=== PATIENT | male | born 1985 ===

== ENCOUNTER 2016-07-23 17:23 | Emergency (ER) | payer SELFPAY ==
[2016-07-23 17:28] VITALS: BP 131/75; PULSE 60; RESP 16; TEMP 98.7; O2SAT 100
--- NOTE | 2016-07-23 17:46 | ED PDOC ---
HPI: Back Time Seen by Provider: 07/23/16 17:44 Chief Complaint (Nursing): Back Pain Chief Complaint (Provider): back pain History Per: Patient (31 y/o male h/o herniated disc noted on MRI 2014 here with lower back pain that occurred after lifting heavy box. Notes sharp pain in back with certain movements. Denies any urinary/rectal incontinence. Has tried motrin/tylenol at home with minimal relief of symptoms. ) Past Medical History Reviewed: Historical Data, Nursing Documentation, Vital Signs Vital Signs: Last Vital Signs Temp 98.7 F 07/23/16 17:26 Pulse 60 07/23/16 17:26 Resp 16 07/23/16 17:26 BP 131/75 07/23/16 17:26 Pulse Ox 100 07/23/16 17:26 - Medical History PMH: Back Problems - Family History Family History: States: No Known Family Hx - Home Medications Home Medications: Ambulatory Orders Medication Instructions Recorded Prednisone 50 mg PO DAILY #6 tab 10/25/13 Acetaminophen with Codeine 1 tab PO Q8 #10 tab 12/16/13 [Tylenol with Codeine No. 3 300 mg-30 mg] Naproxen [Naprosyn] 500 mg PO Q12H #20 tab 12/16/13 Cyclobenzaprine HCl [Flexeril] 10 mg PO Q8 #20 tab 07/20/14 Naproxen [Naprosyn] 500 mg PO BID #20 tab 07/20/14 oxyCODONE/Acetaminophen [Percocet 1 tab PO Q4H PRN #20 tab 07/20/14 5/325 mg Tab] Meloxicam [Mobic] 15 mg PO DAILY PRN #30 tab 07/28/14 Methocarbamol [Robaxin-750] 750 mg PO TID PRN #30 tab 07/28/14 Naproxen [Naprosyn Tab] 375 mg PO Q8 PRN #21 tab 07/23/16 diaZEpam [Valium] 5 mg PO Q6 PRN #8 tab 07/23/16 - Allergies Allergies/Adverse Reactions: Allergies Allergy/AdvReac Type Severity Reaction Status Date / Time No Known Allergies Allergy Verified 07/20/14 14:59 Review of Systems ROS Statement: Except As Marked, All Systems Reviewed And Found Negative Physical Exam - Reviewed Nursing Documentation Reviewed: Yes Vital Signs Reviewed: Yes - Physical Exam Appears: Positive for: Well, Non-toxic, No Acute Distress Head Exam: Positive for: ATRAUMATIC, NORMAL INSPECTION, NORMOCEPHALIC Skin: Positive for: Normal Color, Warm, DRY Eye Exam: Positive for: EOMI, Normal appearance, PERRL ENT: Positive for: Normal ENT Inspection Neck: Positive for: Normal, Painless ROM Cardiovascular/Chest: Positive for: Regular Rate, Rhythm Respiratory: Positive for: CNT, Normal Breath Sounds Gastrointestinal/Abdominal: Positive for: Normal Exam, Bowel Sounds, Soft Back: Positive for: Normal Inspection, Other (left lower paralumbar tenderness) Extremity: Positive for: Normal ROM Neurologic/Psych: Positive for: Alert, Oriented - ECG O2 Sat by Pulse Oximetry: 100 - Progress ED Course And Treament: Toradol 60 mg IM x 1 dose Disposition - Clinical Impression Clinical Impression: Low back pain - Patient ED Disposition Is Patient to be Admitted: No - Disposition Referrals: [facility] [Outside] Disposition: Routine/Home Disposition Time: 17:47 Condition: FAIR Prescriptions: diaZEpam [Valium] 5 mg PO Q6 PRN #8 tab PRN Reason: Muscle Spasm Naproxen [Naprosyn Tab] 375 mg PO Q8 PRN #21 tab PRN Reason: Pain, Moderate (4-7) Instructions: Acute Low Back Pain (GEN) Forms: [facility] ED School/Work Excuse Print Language: FIJIAN
== END 2016-07-23 18:14 | disposition home or self-care (01) ==
LOC: H.ER 17:23
DX: M54.5 Low back pain (principal)
CPT/HCPCS: 96372; 99281; J1885

== ENCOUNTER 2016-11-20 13:51 | Emergency (ER) | payer OTHER ==
[2016-11-20 14:05] VITALS: BP 123/67; PULSE 60; RESP 16; TEMP 98.2; O2SAT 99
[2016-11-20] MEDS ORDERED: Oxycodone/Acetaminophen 5/325 mg Tab PO STA (14:17)
[2016-11-20] MEDS ORDERED: Oxycodone/Acetaminophen 5/325 mg Tab ONE (14:27)
--- NOTE | 2016-11-20 14:31 | ED PDOC ---
HPI: Back Time Seen by Provider: 11/20/16 14:11 Chief Complaint (Nursing): Back Pain Chief Complaint (Provider): Back Pain History Per: Patient History/Exam Limitations: no limitations Onset/Duration Of Symptoms: Days (x2) Current Symptoms Are (Timing): Still Present Additional Complaint(s): Juan Lozada is a 31 year old male with a history of back pain that presents to the ED with a chief complaint of back pain and left-sided pelvic pain that began two days ago after the patient lifted something heavy at work and was unable to stand up properly afterwards. Patient reports a history of back pain in the past, for which he followed up with his doctor at the clinic in June 2016, who recommended that he go to physical therapy. However, patient states that the physical therapy center had an extremely long waiting list, so he did not make an appointment. He reports associated pain with urination after lifting. Past Medical History Reviewed: Historical Data, Nursing Documentation, Vital Signs Vital Signs: Last Vital Signs Temp 98.2 F 11/20/16 14:03 Pulse 60 11/20/16 14:03 Resp 16 11/20/16 14:03 BP 123/67 11/20/16 14:03 Pulse Ox 99 11/20/16 14:03 - Medical History PMH: Back Problems - Family History Family History: States: Unknown Family Hx - Home Medications Home Medications: Ambulatory Orders Medication Instructions Recorded Prednisone 50 mg PO DAILY #6 tab 10/25/13 Acetaminophen with Codeine 1 tab PO Q8 #10 tab 12/16/13 [Tylenol with Codeine No. 3 300 mg-30 mg] Naproxen [Naprosyn] 500 mg PO Q12H #20 tab 12/16/13 Cyclobenzaprine HCl [Flexeril] 10 mg PO Q8 #20 tab 07/20/14 Naproxen [Naprosyn] 500 mg PO BID #20 tab 07/20/14 oxyCODONE/Acetaminophen [Percocet 1 tab PO Q4H PRN #20 tab 07/20/14 5/325 mg Tab] Meloxicam [Mobic] 15 mg PO DAILY PRN #30 tab 07/28/14 Methocarbamol [Robaxin-750] 750 mg PO TID PRN #30 tab 07/28/14 Naproxen [Naprosyn Tab] 375 mg PO Q8 PRN #21 tab 07/23/16 diaZEpam [Valium] 5 mg PO Q6 PRN #8 tab 07/23/16 Naproxen 1 tab PO Q12 PRN #14 tab 11/20/16 diaZEpam [Valium] 5 mg PO Q6 PRN #5 tab 11/20/16 - Allergies Allergies/Adverse Reactions: Allergies Allergy/AdvReac Type Severity Reaction Status Date / Time No Known Allergies Allergy Verified 07/20/14 14:59 Review of Systems Genitourinary Male: Positive for: Other (left-sided pelvic pain, associated difficulty urinating) Musculoskeletal: Positive for: Back Pain (lower back) Physical Exam - Reviewed Nursing Documentation Reviewed: Yes Vital Signs Reviewed: Yes - Physical Exam Appears: Positive for: Non-toxic, No Acute Distress Head Exam: Positive for: ATRAUMATIC, NORMOCEPHALIC Skin: Positive for: Normal Color, Warm Eye Exam: Positive for: EOMI, Normal appearance, PERRL Cardiovascular/Chest: Positive for: Regular Rate, Rhythm. Negative for: Murmur Respiratory: Positive for: Normal Breath Sounds. Negative for: Wheezing Gastrointestinal/Abdominal: Positive for: Normal Exam, Soft. Negative for: Tenderness Back: Positive for: Other (Left paralumbar TTP. No flank TTP b/l.). Negative for: Normal Inspection Extremity: Positive for: Normal ROM, Other (5/5 strength in all extremities). Negative for: Tenderness, Swelling Neurologic/Psych: Positive for: Alert, Oriented. Negative for: Motor/Sensory Deficits - ECG O2 Sat by Pulse Oximetry: 99 (RA) Pulse Ox Interpretation: Normal Medical Decision Making Medical Decision Making: Impression: Left-Sided Back Pain Plan: * Urine dip * Toradol 30 mg IM * Percocet 1 tab PO * Reevaluation Scribe Attestation: Documented by Moni Cummings, acting as a scribe for Setu Abernathy, PA-C. Provider Scribe Attestation: All medical record entries made by the Scribe were at my direction and personally dictated by me. I have reviewed the chart and agree that the record accurately reflects my personal performance of the history, physical exam, medical decision making, and the department course for this patient. I have also personally directed, reviewed, and agree with the discharge instructions and disposition. Disposition - Clinical Impression Clinical Impression: Back strain - Patient ED Disposition Is Patient to be Admitted: No - Disposition Disposition: Routine/Home Disposition Time: 14:42 Condition: FAIR Prescriptions: diaZEpam [Valium] 5 mg PO Q6 PRN #5 tab PRN Reason: Muscle Spasm Naproxen 1 tab PO Q12 PRN #14 tab PRN Reason: Pain, Severe (8-10) Instructions: Acute Low Back Pain (DC) Forms: [facility] ED School/Work Excuse, [facility] (Icelandic) Print Language: IRANIAN
== END 2016-11-20 16:03 | disposition home or self-care (01) ==
LOC: H.ER 13:51
DX: S39.012A Strain of muscle, fascia and tendon of lower back, initial encounter (principal); X50.0XXA Overexertion from strenuous movement or load, initial encounter; Y99.0 Civilian activity done for income or pay
CPT/HCPCS: 96372; 99282; J1885

== ENCOUNTER 2017-04-10 20:06 | Emergency (ER) | payer SELFPAY ==
[2017-04-10 20:20] VITALS: BP 130/85; PULSE 63; RESP 18; TEMP 98.4; O2SAT 100
--- NOTE | 2017-04-10 21:22 | ED PDOC ---
HPI: Back Time Seen by Provider: 04/10/17 20:39 Chief Complaint (Nursing): Back Pain Chief Complaint (Provider): Back Pain History Per: Patient History/Exam Limitations: no limitations Onset/Duration Of Symptoms: Days (2x) Current Symptoms Are (Timing): Still Present Quality Of Discomfort: "Pain" Additional Complaint(s): 32 year old male with past medical history of back pain presents to the ED complaining of back pain onset two days ago. Back pain is worse with movement and the pain radiates from the left lower back to the left leg. Also has mild headache. Denies any changes in sensation or bowel movements. PMD: No Family Provider Past Medical History Reviewed: Historical Data, Nursing Documentation, Vital Signs Vital Signs: Last Vital Signs Temp 98.4 F 04/10/17 20:15 Pulse 63 04/10/17 20:15 Resp 18 04/10/17 20:15 BP 130/85 04/10/17 20:15 Pulse Ox 100 04/10/17 20:15 - Medical History PMH: Back Problems - Family History Family History: States: Unknown Family Hx - Social History Current smoker - smoking cessation education provided: No Alcohol: None Drugs: Denies - Home Medications Home Medications: Ambulatory Orders Medication Instructions Recorded Prednisone 50 mg PO DAILY #6 tab 10/25/13 Acetaminophen with Codeine 1 tab PO Q8 #10 tab 12/16/13 [Tylenol with Codeine No. 3 300 mg-30 mg] Naproxen [Naprosyn] 500 mg PO Q12H #20 tab 12/16/13 Cyclobenzaprine HCl [Flexeril] 10 mg PO Q8 #20 tab 07/20/14 Naproxen [Naprosyn] 500 mg PO BID #20 tab 07/20/14 oxyCODONE/Acetaminophen [Percocet 1 tab PO Q4H PRN #20 tab 07/20/14 5/325 mg Tab] Meloxicam [Mobic] 15 mg PO DAILY PRN #30 tab 07/28/14 Methocarbamol [Robaxin-750] 750 mg PO TID PRN #30 tab 07/28/14 Naproxen [Naprosyn Tab] 375 mg PO Q8 PRN #21 tab 07/23/16 diaZEpam [Valium] 5 mg PO Q6 PRN #8 tab 07/23/16 Naproxen 1 tab PO Q12 PRN #14 tab 11/20/16 diaZEpam [Valium] 5 mg PO Q6 PRN #5 tab 11/20/16 Cyclobenzaprine [Cyclobenzaprine 10 mg PO BID #15 tab 04/10/17 HCl] Naproxen [Naprosyn] 500 mg PO BID PRN #30 tablet 04/10/17 - Allergies Allergies/Adverse Reactions: Allergies Allergy/AdvReac Type Severity Reaction Status Date / Time No Known Allergies Allergy Verified 07/20/14 14:59 Review of Systems ROS Statement: Except As Marked, All Systems Reviewed And Found Negative Musculoskeletal: Positive for: Back Pain (left lower), Leg Pain (left) Neurological: Positive for: Headache (mild). Negative for: Other (change in sensation ) Physical Exam - Reviewed Nursing Documentation Reviewed: Yes Vital Signs Reviewed: Yes - Physical Exam Appears: Positive for: Well, Non-toxic, No Acute Distress Head Exam: Positive for: ATRAUMATIC, NORMAL INSPECTION, NORMOCEPHALIC Skin: Positive for: Normal Color, Warm, Dry Eye Exam: Positive for: EOMI, Normal appearance, PERRL ENT: Positive for: Normal ENT Inspection Neck: Positive for: Normal, Painless ROM, Supple. Negative for: Decreased ROM Cardiovascular/Chest: Positive for: Regular Rate, Rhythm. Negative for: Murmur Respiratory: Positive for: Normal Breath Sounds. Negative for: Decreased Breath Sounds, Accessory Muscle Use, Wheezing Gastrointestinal/Abdominal: Positive for: Normal Exam, Bowel Sounds, Soft. Negative for: Tenderness, Guarding, Rebound Back: Positive for: Other (left lumbar paravertebral muscle tenderness) Extremity: Positive for: Normal ROM. 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 Negative for: Mood/Affect, Aphasia - ECG O2 Sat by Pulse Oximetry: 100 (RA) Pulse Ox Interpretation: Normal Medical Decision Making Medical Decision Making: Time: 20:43 Initial Impression: Muscular back pain Initial Plan: --Lumbar spine [RAD] --Flexeril 10mg --Toradol 60mg --Reevaluation 2225 Patient feeling better. Referral given. Return precautions discussed. Clinical Impression: Back Strain Upon provider evaluation patient is medically stable, and requires no further treatment in the ED at this time. Patient will be discharged with Cyclobenzaprine 10mg and Naprosyn 500mg for muscle strain and lower back. Counseling was provided and all questions were answered regarding diagnosis and need for follow up with PMD. There is agreement to discharge plan. Return if symptoms persist or worsen. Documented by Leticia Thompson acting as a scribe for Evan Araujo MD. All medical record entries made by the Scribe were at my direction and personally dictated by me. I have reviewed the chart and agree that the record accurately reflects my personal performance of the history, physical exam, medical decision making, and the department course for this patient. I have also personally directed, reviewed, and agree with the discharge instructions and disposition. Disposition - Clinical Impression Clinical Impression: Back strain - Patient ED Disposition Is Patient to be Admitted: No - Disposition Referrals: [facility] [Outside] Disposition: Routine/Home Disposition Time: 22:25 Condition: IMPROVED Prescriptions: Cyclobenzaprine [Cyclobenzaprine HCl] 10 mg PO BID #15 tab Naproxen [Naprosyn] 500 mg PO BID PRN #30 tablet PRN Reason: Pain, Moderate (4-7) Instructions: Muscle Strain, Low Back Pain in Adults Forms: [employer] (Occitan) Print Language: MALTESE
--- NOTE | 2017-04-11 08:43 | RAD ---
PROCEDURE: Radiographs of the Lumbar Spine. HISTORY: back pain, atraumatic COMPARISON: No prior. FINDINGS: BONES: There is mild straightening of lumbar curvature. No listhesis. No fracture. No destructive bony lesion identified. DISC SPACES: Unremarkable. OTHER FINDINGS: None. IMPRESSION: Mild straightening of lumbar curvature. No fracture or spondylolisthesis identified.
== END 2017-04-10 23:05 | disposition home or self-care (01) ==
LOC: H.ER 20:06
DX: S39.012A Strain of muscle, fascia and tendon of lower back, initial encounter (principal); X58.XXXA Exposure to other specified factors, initial encounter; Y92.9 Unspecified place or not applicable
CPT/HCPCS: 72114; 96372; 99282; J1885